=== PATIENT | male | born 1960 | race Caucasian/White ===

== ENCOUNTER 2020-04-09 14:57 | Inpatient (IN) | payer OTHER ==
[~2020-04-09] VITALS: Ht 167.6 cm; Wt 65.1 kg
[2020-04-09] MEDS ORDERED: ONDANSETRON HCL 4 MG TABLET PO ONE (15:30)
[2020-04-09 15:59] LABS: BASOPHILS % (AUTO) 0.8 % (0.0-2.0); EOSINOPHILS % (AUTO) 0.3 % (1.0-6.0); HEMATOCRIT 42.6 % (41-53); HEMOGLOBIN 14.3 g/dL (13.5-17.5); LYMPHOCYTES # (AUTO) 1.7 K/uL (1.0-4.8); LYMPHOCYTES % (AUTO) 24.7 % (22.0-44.0); MEAN CORPUSCULAR HGB CONC 33.5 G/dL (31.0-37.0); MEAN CORPUSCULAR VOLUME 90 fL (80-100); MONOCYTES # (AUTO) 0.6 K/uL (0.1-1.0); MONOCYTES % (AUTO) 9.1 % (2.0-9.0); NEUTROPHILS # (AUTO) 4.5 K/uL (1.8-7.7); NEUTROPHILS % (AUTO) 65.1 % (40.0-70.0); PLATELET COUNT (AUTO) 292 K/uL (150-450); RED BLOOD CELL COUNT(AUTO) 4.76 MIL/uL (4.50-5.90); RED CELL DISTRIBUTION WIDTH 14.3 % (11.5-14.5)
[2020-04-09 16:07] LABS: ANION GAP 8 mmol/L (8-16); CALCIUM, TOTAL 8.1 mg/dL (8.8-10.5); CARBON DIOXIDE 25 mmol/L (22-29); CHLORIDE 104 mmol/L (98-107); CREATININE 0.81 mg/dL (0.60-1.30); GLOMERULAR FILTR. RATE CALC > 60 mL/min (>60); GLUCOSE,RANDOM 106 mg/dL (70-110); POTASSIUM 3.7 mmol/L (3.5-5.1); SODIUM SERUM 137 mmol/L (136-145); UREA NITROGEN, BLOOD 17 mg/dL (7-18)
[2020-04-09 16:13] LABS: ALANINE AMINOTRANSFERASE 22 U/L (12-78); ALKALINE PHOSPHATASE 71 U/L (46-116); ASPARTATE AMINOTRANSFERASE 25 U/L (15-37); BILIRUBIN,TOTAL 0.9 mg/dL (0.1-1.0); LIPASE 80 U/L (73-393); TOTAL PROTEIN, SERUM 7.7 g/dL (6.4-8.2)
[2020-04-09] MEDS ORDERED: LORazepam 1 MG TABLET PO ONE (16:15)
[2020-04-09] MEDS ORDERED: MAGNESIUM SULFATE 4 GM/WATER 100 ML IV PRN (16:30)
[2020-04-09] MEDS ORDERED: LORazepam 2 MG/ML VIAL IVP PRN (16:30)
[2020-04-09] MEDS ORDERED: MAGNESIUM OXIDE 400 MG TABLET PO PRN (16:30)
[2020-04-09] MEDS ORDERED: MAGNESIUM SULFATE 2 GM/WATER 50 ML IV PRN (16:30)
[2020-04-09 16:40] LABS: GLUCOSE,POINT OF CARE 80 MG/DL (70-110)
[2020-04-09] MEDS ORDERED: MAGNESIUM HYDROXIDE SUSPENSION 30 ML UDCUP PO PRN (16:45)
[2020-04-09] MEDS ORDERED: ACETAMINOPHEN 325 MG TABLET PO PRN (16:45)
[2020-04-09] MEDS ORDERED: SODIUM CHLORIDE 0.9% 1,000 ML IV ONE (16:45)
[2020-04-09 17:51] VITALS: BP 139/87
[2020-04-09] MEDS: MULTIVITAMINS WITH MINERALS, THERAPEUTIC TABLET PO SCH (18:04)
[2020-04-09 19:40] VITALS: BP 146/91
[2020-04-09] MEDS: FAMOTIDINE 20 MG TABLET PO SCH (21:53)
[2020-04-10] VITALS (7 sets, daily range): BP systolic 129–147; BP diastolic 80–91
[2020-04-10] MEDS: HEPARIN SODIUM,PORCINE 5,000 UNITS/ML VIAL SQ SCH ×4 (00:30→23:48)
[2020-04-10] MEDS: ChlordiazePOXIDE HCL 10 MG CAPSULE PO SCH ×4 (00:31→23:48)
[2020-04-10] MEDS: MULTIVITAMINS WITH MINERALS, THERAPEUTIC TABLET PO SCH (09:09)
[2020-04-10] MEDS: FAMOTIDINE 20 MG TABLET PO SCH ×2 (09:09→20:38)
[2020-04-10] MEDS ORDERED: SODIUM CHLORIDE 0.9% 1,000 ML IV ONE (10:30)
[2020-04-11 05:22] VITALS: BP 138/88
[2020-04-11] MEDS: ChlordiazePOXIDE HCL 10 MG CAPSULE PO SCH (07:59)
[2020-04-11] MEDS: FAMOTIDINE 20 MG TABLET PO SCH (07:59)
[2020-04-11] MEDS: MULTIVITAMINS WITH MINERALS, THERAPEUTIC TABLET PO SCH (07:59)
[2020-04-11] MEDS: HEPARIN SODIUM,PORCINE 5,000 UNITS/ML VIAL SQ SCH (08:00)
[2020-04-11 08:20] VITALS: BP 142/83
[2020-04-11] MEDS ORDERED: FAMO20 PO (10:26)
[2020-04-11] MEDS ORDERED: MULT-248 PO ×2 (10:27→10:43)
[2020-04-11] MEDS ORDERED: ACET-3207 PO (10:29)
[2020-04-11] MEDS ORDERED: MOM30 PO (10:30)
== END 2020-04-11 11:05 | DRG 897 ==
LOC: EMS 14:57 → 5S 16:31 → UNDOADMIN 17:22 → 6S 04-10 18:53
PROVIDERS: ADMIT Internal Medicine; ATTEND Internal Medicine
DX: F11.23 Opioid dependence with withdrawal (principal); F10.239 Alcohol dependence with withdrawal, unspecified; Y90.9 Presence of alcohol in blood, level not specified; F17.210 Nicotine dependence, cigarettes, uncomplicated; F19.10 Other psychoactive substance abuse, uncomplicated
CPT/HCPCS: 82948; 83735; J1644; J7030; Q0162